=== PATIENT | female | born 1970 | race African-American/Black ===

== ENCOUNTER 2019-10-15 02:16 | Inpatient (IN) | payer MEDICAID ==
[~2019-10-15] VITALS: Ht 165.1 cm; Wt 58.1 kg
[2019-10-15] MEDS ORDERED: SODIUM CHLORIDE 0.9% 1,000 ML IV ONE (02:22)
[2019-10-15] MEDS ORDERED: TETANUS, DIPHTHERIA, PERTUSSIS VAC/PF 0.5ML (>7YR OLD) IM ONE (02:30)
[2019-10-15] MEDS ORDERED: CEFAZOLIN 1000MG PREMIX 50 ML IV ONE (02:30)
[2019-10-15] MEDS ORDERED: MORPHINE SULFATE 2 MG/ML CPJ (NOT FOR IM USE) IV ONE (03:00)
[2019-10-15 03:12] LABS: BASOPHILS % 0.9 % (0.0-2.0); EOSINOPHILS % 1.2 % (0.0-5.0); HEMATOCRIT. 23.5 % (36.0-48.0); LYMPHOCYTES % 18.8 % (20.0-50.0); MEAN CORPUSCULAR HEMOGLOBIN 18.2 pg (28.0-32.0); MEAN CORPUSCULAR VOLUME 62.3 fL (81.0-99.0); MEAN PLATELET VOLUME 8.2 fl (7.4-10.4); MONOCYTES % 9.7 % (2.0-8.0); NEUTROPHILS % 69.4 % (40.0-76.0); PLATELET 293 x1000/uL (130-400); RED BLOOD CELL COUNT 3.76 mill/uL (4.2-5.4); RED CELL DISTRIBUTION WIDTH 23.5 % (11.6-14.6)
[2019-10-15 03:18] LABS: CHLORIDE 108 mEq/L (98-107)
[2019-10-15 03:22] LABS: ETHANOL BLOOD < 10 mg/dL
[2019-10-15 03:26] LABS: HEMOGLOBIN. 6.9 g/dL (12.0-16.0)
[2019-10-15 03:55] LABS: CLARITY URINE CLEAR (CLEAR); COLOR URINE YELLOW (YELLOW); KETONES URINE NEGATIVE (NEGATIVE); LEUKOCYTE ESTERASE URINE NEGATIVE (NEGATIVE); NITRITE URINE NEGATIVE (NEGATIVE); OCCULT BLOOD URINE NEGATIVE (NEGATIVE); PH URINE 6.5 (4.5-8.0); PROTEIN URINE 2+ (NEGATIVE); SPECIFIC GRAVITY URINE 1.014 (1.005-1.030)
[2019-10-15 04:09] LABS: *BARBITURATES SCREEN URINE NEGATIVE (NEGATIVE); METHADONE URINE SCREEN NEGATIVE (NEGATIVE); OPIATES URINE SCREEN NEGATIVE (NEGATIVE); PHENCYCLIDINE URINE SCREEN NEGATIVE (NEGATIVE)
[2019-10-15 04:10] LABS: *AMPHETAMINES SCREEN URINE PRESUMTIVE POSITIVE (NEGATIVE); *BENZODIAZEPINES SCREEN URINE NEGATIVE (NEGATIVE); *COCAINE SCREEN URINE PRESUMTIVE POSITIVE (NEGATIVE); CANNABINOID URINE SCREEN PRESUMTIVE POSITIVE (NEGATIVE)
[2019-10-15 04:36] LABS: PLATELET ESTIMATE NORMAL
[2019-10-15] MEDS ORDERED: IOHEXOL-350 100 ML BOTTLE ONE (06:55)
[2019-10-15] MEDS ORDERED: LIDOCAINE HCL/EPINEPHRINE 1%-EPI 1:100,000 20 ML VIAL INFIL ONE (07:00)
[2019-10-15] MEDS ORDERED: BACITRACIN ZINC OINT UDPKT TOP ONE (07:00)
[2019-10-15] MEDS ORDERED: METHOCARBAMOL 500MG TABLET PO ONE (08:00)
[2019-10-15] MEDS ORDERED: CLONIDINE 0.2MG TABLET PO ONE (09:15)
[2019-10-15] MEDS ORDERED: AMLODIPINE 5MG TABLET PO ONE (09:15)
[2019-10-15] MEDS ORDERED: HYDROCODONE/ACETAMINOPHEN 5/325MG TABLET PO ONE (12:00)
[2019-10-15 16:13] VITALS: BP 150/91
[2019-10-15 16:16] VITALS: BP 150/91
[2019-10-15 18:00] VITALS: BP 157/94
[2019-10-15 20:10] VITALS: BP 170/101
[2019-10-15 22:10] VITALS: BP 159/99
[2019-10-15] MEDS ORDERED: CLONIDINE 0.1MG TABLET PO PRN (23:00)
[2019-10-16] VITALS (20 sets, daily range): BP systolic 104–164; BP diastolic 62–110
[2019-10-16 07:18] LABS: EOSINOPHILS % 2.1 % (0.0-5.0); HEMATOCRIT. 24.7 % (36.0-48.0); HEMOGLOBIN. 7.6 g/dL (12.0-16.0); LYMPHOCYTES % 16.1 % (20.0-50.0); MEAN CORPUSCULAR HEMOGLOBIN 19.9 pg (28.0-32.0); MEAN CORPUSCULAR VOLUME 64.4 fL (81.0-99.0); MEAN PLATELET VOLUME 8.6 fl (7.4-10.4); MONOCYTES % 8.2 % (2.0-8.0); NEUTROPHILS % 72.6 % (40.0-76.0); PLATELET 218 x1000/uL (130-400); RED BLOOD CELL COUNT 3.84 mill/uL (4.2-5.4); RED CELL DISTRIBUTION WIDTH 24.4 % (11.6-14.6)
[2019-10-16] MEDS: HYDROCODONE/ACETAMINOPHEN 5/325MG TABLET PO PRN ×2 (14:07→21:37)
[2019-10-16] MEDS: AMLODIPINE 10MG TABLET PO SCH (14:08)
[2019-10-17] VITALS (11 sets, daily range): BP systolic 104–183; BP diastolic 62–102
[2019-10-17] MEDS: HYDROCODONE/ACETAMINOPHEN 5/325MG TABLET PO PRN ×2 (02:20→09:15)
[2019-10-17 06:00] LABS: BASOPHILS % 0.7 % (0.0-2.0); EOSINOPHILS % 2.2 % (0.0-5.0); HEMATOCRIT. 29.5 % (36.0-48.0); HEMOGLOBIN. 9.3 g/dL (12.0-16.0); LYMPHOCYTES % 21.8 % (20.0-50.0); MEAN CORPUSCULAR HEMOGLOBIN 20.7 pg (28.0-32.0); MEAN CORPUSCULAR VOLUME 66.1 fL (81.0-99.0); MEAN PLATELET VOLUME 8.5 fl (7.4-10.4); MONOCYTES % 9.6 % (2.0-8.0); NEUTROPHILS % 65.7 % (40.0-76.0); PLATELET 183 x1000/uL (130-400); RED BLOOD CELL COUNT 4.47 mill/uL (4.2-5.4); RED CELL DISTRIBUTION WIDTH 24.3 % (11.6-14.6)
[2019-10-17] MEDS: AMLODIPINE 10MG TABLET PO SCH (09:15)
[2019-10-17 10:25] LABS: INR 0.9; PROTHROMBIN TIME 10.3 sec (9.6-11.0)
== END 2019-10-17 19:28 | disposition home or self-care (01) | DRG 384 ==
LOC: ER 02:16 → 3WST 06:57 → ENRESERV 13:28
PROVIDERS: ADMIT Internal Medicine; ATTEND Internal Medicine
PROC: 30233N1 Transfusion of Nonautologous Red Blood Cells into Peripheral Vein, Percutaneous Approach (ICD-10-PCS; principal; 2019-10-15)
PROC: 0HQLXZZ Repair Left Lower Leg Skin, External Approach (ICD-10-PCS; 2019-10-15)
DX: S81.812A Laceration without foreign body, left lower leg, initial encounter (principal); N17.9 Acute kidney failure, unspecified; D62 Acute posthemorrhagic anemia; G89.29 Other chronic pain; I10 Essential (primary) hypertension; N92.0 Excessive and frequent menstruation with regular cycle; R00.1 Bradycardia, unspecified; M24.50 Contracture, unspecified joint; F15.10 Other stimulant abuse, uncomplicated; F14.10 Cocaine abuse, uncomplicated; X94.0XXA Assault by shotgun, initial encounter; I25.2 Old myocardial infarction; Z86.73 Personal history of transient ischemic attack (TIA), and cerebral infarction without residual deficits; Y93.89 Activity, other specified; Y92.098 Other place in other non-institutional residence as the place of occurrence of the external cause; Y99.8 Other external cause status
CPT/HCPCS: 36415; 73706; 80048; 80053; 80305; 80320; 81003; 84484; 85025; 85384; 86850; 86900; 86920; 90715; 97162; 97166; 99285; J0690; J2270; J3490; J7030; P9016; Q9967; G0480